=== PATIENT | female | born 1995 | race Caucasian/White ===

== ENCOUNTER 2018-12-22 07:05 | Emergency (ER) | payer SELFPAY ==
[~2018-12-22] VITALS: Ht 154.9 cm; Wt 60.7 kg
[2018-12-22 07:09] VITALS: BP 144/81; PULSE 123; RESP 18; Ht 154.9 cm; Wt 60.7 kg
[2018-12-22] MEDS ORDERED: KETOROLAC 30 MG INJ IM STA (07:37)
[2018-12-22] MEDS ORDERED: ONDANSETRON 4 MG INJ IM STA (07:38)
--- NOTE | 2018-12-22 08:02 | ERD ---
ER Documentation Chief Complaint Chief Complaint abdominal pain x 6 days, dx gallstones HPI 23-year-old female with no reported past medical history, recently diagnosed with gallstones on December 19 presents with complaint of right upper quadrant abdominal pain along with nausea and vomiting. After being evaluated on December 19 patient was advised to proceed to [facility] for surgical care. Sentences ED as it was closer. After examination of the patient she decided to leave and proceed to [facility] for continued care. Patient offered symptomatic treatment but declined. She was hemodynamically stable at the time she left the hospital. ROS All systems reviewed and are negative except as per history of present illness. Medications Home Meds No Active Prescriptions or Reported Meds Allergies Allergies: Coded Allergies: No Known Allergy (Unverified , 10/27/13) PMhx/Soc History of Surgery: No Anesthesia Reaction: No Hx Neurological Disorder: No Hx Respiratory Disorders: No Hx Cardiac Disorders: No Hx Psychiatric Problems: No Hx Miscellaneous Medical Probl: Yes (SEIZURES) Hx Alcohol Use: No Hx Substance Use: No Hx Tobacco Use: No Smoking Status: Never smoker FmHx Family History: No diabetes, No coronary disease, No other Physical Exam Vitals Vital Signs Date Temp Pulse Resp B/P (MAP) Pulse Ox O2 O2 Flow FiO2 Time Delivery Rate 12/22/18 98.6 123 18 144/81 98 07:09 (102) Physical Exam Const: No acute distress Head: Atraumatic Eyes: Normal Conjunctiva ENT: Normal External Ears, Nose and Mouth. Neck: Full range of motion. No meningismus. Resp: Clear to auscultation bilaterally Cardio: Regular rate and rhythm, no murmurs Abd: Soft, noticed to palpation to right upper quadrant and epigastrium, non distended. Normal bowel sounds Skin: No petechiae or rashes Back: No midline or flank tenderness Ext: No cyanosis, or edema Neur: Awake and alert Psych: Normal Mood and Affect Results 24 hrs Current Medications Medications Dose Sig/Noni Start Time Status Last (Trade) Ordered Route PRN Stop Time Admin Dose Reason Admin Ketorolac 30 mg ONCE STAT 12/22/18 DC Tromethamine IM 07:37 12/22/18 (Toradol) 07:38 Ondansetron 4 mg ONCE STAT 12/22/18 DC HCl (Zofran IM 07:38 12/22/18 Inj) 07:40 Procedures/MDM 23-year-old female with known diagnosis of gallstones who presented with complai nt of abdominal pain. Patient electing to continue care at [facility] she was originally referred to. At the time of her leaving she was seen medically stable. Left under her own power. Patient advised of the risk of leaving ED. Patient expressing understanding of such risk. Ultimately deciding to pursue care at [facility]. Departure Diagnosis: Primary Impression: Abdominal pain Condition: Stable NUBIA SANABRIA PA-C December 22, 2018 08:02
== END 2018-12-22 08:32 | disposition left against medical advice (07) ==
LOC: FTE 07:05
DX: R10.11 Right upper quadrant pain (principal)
CPT/HCPCS: 99282